=== PATIENT | male | born 1995 | race African-American/Black ===

== ENCOUNTER 2020-05-16 22:56 | Emergency (ER) | payer OTHER ==
[~2020-05-16] VITALS: Ht 170.2 cm; Wt 69.4 kg
[~2020-05-16 22:56] MED LIST: AMITRIPTYLINE H25 M3; DROXIA200 MG; FOLIC ACID1 MG PO; HYDROXYUREA; MS CONTIN15 MG PO; NAPROSYN500 MG PO; OXYCODONE HCL E10 MG PO
[2020-05-16] MEDS ORDERED: OXYCONTIN10 M1 PO (23:03)
[2020-05-16 23:24] LABS: HEMOGLOBIN 10.8 gm/dL (14.0-18.0); MCH 26.5 pg (26.0-34.0); MCHC 33.8 g/dL (28.0-37.0); MCV 78.4 fL (80.0-100.0); OBSERVED RETIC COUNT 2.18 % (0.6-2.6); PLATELET COUNT 200 thou/uL (150-400); RBC 4.08 mil/uL (4.50-6.00); RDW 20.2 % (10.5-14.5); WBC 15.2 thou/uL (4.0-11.0)
[2020-05-16 23:29] LABS: CALCIUM 9.2 mg/dL (8.5-10.1); POTASSIUM 3.3 mmol/L (3.5-5.1)
[2020-05-16 23:36] LABS: ALBUMIN 4.9 g/dL (3.4-5.0); TOTAL BILIRUBIN 0.9 mg/dL (0.2-1.0); TOTAL PROTEIN 8.4 g/dL (6.4-8.2)
[2020-05-16 23:56] VITALS: BP 108/53
[2020-05-17 00:08] LABS: ANISOCYTOSIS 2+; NUCLEATED RBCS 1 /100WBC; PLATELET ESTIMATE NORMAL; POIKILOCYTOSIS 1+; POLYCHROMASIA 1+; SCHISTOCYTES 1+; TARGET CELLS 1+
== END 2020-05-16 23:53 | disposition home or self-care (01) ==
LOC: ER 22:56
PROVIDERS: Emergency Medicine
DX: D57.819 Other sickle-cell disorders with crisis, unspecified (principal); Z20.828 Contact with and (suspected) exposure to other viral communicable diseases; R11.2 Nausea with vomiting, unspecified; J45.909 Unspecified asthma, uncomplicated; Z79.899 Other long term (current) drug therapy